=== PATIENT | female | born 1980 | race Caucasian/White ===

== ENCOUNTER 2017-12-09 20:06 | Emergency (ER) | payer MEDICAID ==
[2017-12-09 23:01] LABS: URINE BLOOD (Dip) POC Trace-intact (NEGATIVE); URINE GLUCOSE (Dip) POC Negative (NEGATIVE); URINE KETONES (Dip) POC Negative (NEGATIVE); URINE LEUKOCYTE EST (Dip) POC Trace (NEGATIVE); URINE NITRITE (Dip) POC Negative (NEGATIVE); URINE TOTAL PROTEIN POC Negative (NEGATIVE)
[2017-12-10] MEDS: ACETAMINOPHEN 325 MG TAB PO (00:01)
== END 2017-12-10 00:10 | disposition home or self-care (01) ==
LOC: FTE 20:06
DX: O26.891 Other specified pregnancy related conditions, first trimester (principal); R10.2 Pelvic and perineal pain; O34.81 Maternal care for other abnormalities of pelvic organs, first trimester; Z3A.12 12 weeks gestation of pregnancy
CPT/HCPCS: 76801; 81003; 99284-25

== ENCOUNTER 2018-03-18 11:39 | Outpatient (CLI) | payer MEDICAID ==
[2018-03-18 13:12] LABS: ADD UMIC YES; UR ASCORBIC ACID NEGATIVE (NEGATIVE); UR BACTERIA FEW /HPF (NONE SEEN); UR BILIRUBIN (Dip) NEGATIVE (NEGATIVE); UR BLOOD (Dip) NEGATIVE (NEGATIVE); UR CLARITY CLEAR (CLEAR); UR COLOR STRAW (YELLOW); UR GLUCOSE (Dip) 1+ mg/dL (NEGATIVE); UR KETONES (Dip) NEGATIVE (NEGATIVE); UR LEUKOCYTE ESTERASE (Dip) 1+ Leu/ul (NEGATIVE); UR NITRITE (Dip) NEGATIVE (NEGATIVE); UR RBC 1 /HPF (0-5); UR SPECIFIC GRAVITY (Dip) 1.005 (1.003-1.030); UR SQUAMOUS EPITHELIAL CELL FEW /HPF (FEW); UR TOTAL PROTEIN (Dip) NEGATIVE (NEGATIVE); UR UROBILINOGEN (Dip) NEGATIVE (NEGATIVE); UR WBC 3 /HPF (0-5)
== END 2018-03-18 15:42 | disposition home or self-care (01) ==
LOC: OBT 11:39 → L-D 11:40 → OBT 15:42
DX: O26.892 Other specified pregnancy related conditions, second trimester (principal); O09.522 Supervision of elderly multigravida, second trimester; Z3A.26 26 weeks gestation of pregnancy
CPT/HCPCS: 76817; 76818; 81001

== ENCOUNTER 2018-04-21 21:20 | Outpatient (CLI) | payer MEDICAID ==
[2018-04-21] MEDS: LACTATED RINGER'S 1,000 ML IV ×2 (22:14→22:58)
[2018-04-21] MEDS: ACETAMINOPHEN 500 MG TAB PO (22:16)
[2018-04-21 22:43] LABS: ADD MAN DIFF? NO
[2018-04-21 22:45] LABS: BASOPHILS % 0.3 % (0.0-2.0); EOSINOPHILS # 0.1 10^3/ul (0.0-0.5); EOSINOPHILS % 1.2 % (0.0-7.0); HEMATOCRIT 35.7 % (37.0-47.0); HEMOGLOBIN 11.9 g/dl (12.0-16.0); LYMPHOCYTES % 19.1 % (15.0-51.0); MEAN CORPUSCULAR HEMOGLOBIN 29.4 pg (29.0-33.0); MEAN CORPUSCULAR HGB CONC 33.3 g/dl (32.0-37.0); MEAN CORPUSCULAR VOLUME 88.1 fl (82.0-101.0); MEAN PLATELET VOLUME 10.3 fl (7.4-10.4); MONOCYTE # 0.8 10^3/ul (0.3-0.9); MONOCYTES % 7.2 % (0.0-11.0); NEUTROPHIL # 7.5 10^3/ul (1.6-7.5); NEUTROPHILS % 70.8 % (39.0-77.0); PLATELET COUNT 166 10^3/UL (140-415); RED BLOOD COUNT 4.05 10^6/ul (4.20-5.40); RED CELL DISTRIBUTION WIDTH 13.4 % (11.5-14.5)
[2018-04-21 22:45] LABS: WHITE BLOOD COUNT 10.6 10^3/ul (4.8-10.8)
[2018-04-21 22:50] LABS: ADD UMIC YES; UR ASCORBIC ACID NEGATIVE (NEGATIVE); UR BILIRUBIN (Dip) NEGATIVE (NEGATIVE); UR BLOOD (Dip) NEGATIVE (NEGATIVE); UR CLARITY CLEAR (CLEAR); UR COLOR STRAW (YELLOW); UR GLUCOSE (Dip) 2+ mg/dL (NEGATIVE); UR KETONES (Dip) NEGATIVE (NEGATIVE); UR LEUKOCYTE ESTERASE (Dip) TRACE Leu/ul (NEGATIVE); UR NITRITE (Dip) NEGATIVE (NEGATIVE); UR RBC 0 /HPF (0-5); UR SPECIFIC GRAVITY (Dip) 1.006 (1.003-1.030); UR SQUAMOUS EPITHELIAL CELL FEW /HPF (FEW); UR TOTAL PROTEIN (Dip) NEGATIVE (NEGATIVE); UR UROBILINOGEN (Dip) NEGATIVE (NEGATIVE); UR WBC 1 /HPF (0-5)
[2018-04-21 23:08] LABS: ALANINE AMINOTRANSFERASE 18 IU/L (13-69); ALBUMIN 3.3 g/dl (3.3-4.9); ALKALINE PHOSPHATASE 91 IU/L (42-121); ANION GAP 11 (8-16); ASPARTATE AMINO TRANSFERASE 13 IU/L (15-46); BILIRUBIN,INDIRECT 0.2 mg/dl (0-1.1); BILIRUBIN,TOTAL 0.2 mg/dl (0.2-1.3); BLOOD UREA NITROGEN 6 mg/dl (7-20); CARBON DIOXIDE 23 mmol/L (21-31); CHLORIDE 110 mmol/L (97-110); CREATININE 0.43 mg/dl (0.44-1.00); GLUCOSE 136 mg/dl (70-220); POTASSIUM 3.7 mmol/L (3.5-5.1); SODIUM 140 mmol/L (135-144); TOTAL PROTEIN 6.3 g/dl (6.1-8.1); URIC ACID 3.9 mg/dl (3.1-7.9)
== END 2018-04-22 02:40 | disposition home or self-care (01) ==
LOC: OBT 21:20 → L-D 21:21
DX: O24.410 Gestational diabetes mellitus in pregnancy, diet controlled (principal); Z3A.32 32 weeks gestation of pregnancy
CPT/HCPCS: 36415; 76817; 80053; 81001; 82731; 82962; 84560; 85025; 96360; 96361

== ENCOUNTER 2018-06-14 05:50 | Inpatient (IN) | payer MEDICAID ==
[2018-06-14] MEDS ORDERED: CARBOPROST 250 MCG INJ IM (11:00)
[2018-06-14] MEDS ORDERED: METHYLERGONOVINE 0.2 MG INJ IM (11:00)
[2018-06-14] MEDS ORDERED: MISOPROSTOL 200 MCG TAB PR (11:00)
[2018-06-14] MEDS ORDERED: OXYTOCIN 30 UNITS/LR 500 ML IV (11:00)
[2018-06-14] MEDS ORDERED: BUTORPHANOL 1 MG INJ IV (11:00)
[2018-06-14] MEDS ORDERED: LIDOCAINE 1% (MPF) 30 ML INJ INJ (11:00)
[2018-06-14 11:40] LABS: ADD MAN DIFF? NO
[2018-06-14 11:48] LABS: WHITE BLOOD COUNT 9.1 10^3/ul (4.8-10.8)
[2018-06-14 11:48] LABS: BASOPHILS % 0.4 % (0.0-2.0); EOSINOPHILS # 0.1 10^3/ul (0.0-0.5); EOSINOPHILS % 0.9 % (0.0-7.0); HEMATOCRIT 41.1 % (37.0-47.0); HEMOGLOBIN 13.2 g/dl (12.0-16.0); LYMPHOCYTES # 2.1 10^3/ul (0.8-2.9); LYMPHOCYTES % 22.5 % (15.0-51.0); MEAN CORPUSCULAR HEMOGLOBIN 28.1 pg (29.0-33.0); MEAN CORPUSCULAR HGB CONC 32.1 g/dl (32.0-37.0); MEAN CORPUSCULAR VOLUME 87.4 fl (82.0-101.0); MEAN PLATELET VOLUME 12.6 fl (7.4-10.4); MONOCYTE # 0.7 10^3/ul (0.3-0.9); MONOCYTES % 7.5 % (0.0-11.0); NEUTROPHIL # 6.2 10^3/ul (1.6-7.5); NEUTROPHILS % 67.7 % (39.0-77.0); PLATELET COUNT 122 10^3/UL (140-415); RED CELL DISTRIBUTION WIDTH 14.6 % (11.5-14.5)
[2018-06-14 12:09] LABS: INR 0.93; PROTIME 12.6 Sec (11.9-14.9)
[2018-06-14 12:10] LABS: PARTIAL THROMBOPLASTIN TIME 31.4 Sec (25.0-35.0)
[2018-06-14] MEDS: LACTATED RINGER'S 1,000 ML IV* ×3 (12:38→20:48)
[2018-06-14] MEDS: OXYTOCIN 30 UNITS/LR 500 ML IV (12:47)
[2018-06-14] MEDS: BUTORPHANOL 2 MG INJ IV (15:09)
[2018-06-14 16:19] LABS: HEPATITIS B SURFACE ANTIGEN NEGATIVE (NEGATIVE)
[2018-06-14 19:54] LABS: RAPID PLASMA REAGIN NONREACTIVE (NR)
[2018-06-14] MEDS ORDERED: DEXTROSE 5%-LR 1,000 ML IV (20:30)
[2018-06-14] MEDS ORDERED: FENTAnyl 2MCG/ML-ROPIV 0.2% 100 ML (20:50)
[2018-06-14] MEDS ORDERED: DIPHENHYDRAMINE 50 MG INJ IV (21:30)
[2018-06-14] MEDS ORDERED: NALOXONE (0.4 MG/ML) INJ IV (21:30)
[2018-06-14] MEDS ORDERED: FENTAnyl 2MCG/ML-ROPIV 0.2% 100 ML BAG EPI (21:30)
[2018-06-14] MEDS ORDERED: ONDANSETRON 4 MG INJ IV (21:30)
[2018-06-15] MEDS: OXYTOCIN 30 UNITS/LR 500 ML IV ×3 (01:35→06:18)
[2018-06-15] MEDS: LACTATED RINGER'S 1,000 ML IV* ×5 (01:35→19:00)
[2018-06-15] MEDS ORDERED: OXYTOCIN 30 UNITS/LR 500 ML IV (02:00)
[2018-06-15] MEDS ORDERED: MISOPROSTOL 200 MCG TAB PR (02:00)
[2018-06-15] MEDS ORDERED: METHYLERGONOVINE 0.2 MG INJ IM (02:00)
[2018-06-15] MEDS ORDERED: ONDANSETRON 4 MG INJ IV (02:00)
[2018-06-15] MEDS ORDERED: DIBUCAINE 1% 30 GM OINT PR (02:00)
[2018-06-15] MEDS ORDERED: ACETAMINOPHEN 325 MG TAB PO (02:00)
[2018-06-15] MEDS ORDERED: LANOLIN 7 GM TUBE TOP (02:00)
[2018-06-15] MEDS ORDERED: CARBOPROST 250 MCG INJ IM (02:00)
[2018-06-15] MEDS: IBUPROFEN 600 MG TAB PO ×3 (03:13→17:29)
[2018-06-15] MEDS: WITCH HAZEL/GLYCERIN PAD PR (06:47)
[2018-06-15] MEDS: BENZOCAINE 20% 56 ML SPRAY TOP (06:48)
[2018-06-15] MEDS: ACETAMINOPHEN 325 MG TAB PO (06:49)
[2018-06-15] MEDS: MAGNESIUM HYDROXIDE 30ML CUP PO (09:09)
[2018-06-15] MEDS: SENNA/DOCUSATE NA (8.6MG/50MG) TAB PO (09:09)
[2018-06-16] MEDS: LACTATED RINGER'S 1,000 ML IV* ×6 (01:35→20:39)
[2018-06-16] MEDS: IBUPROFEN 600 MG TAB PO ×4 (02:25→23:43)
[2018-06-16 08:03] LABS: ADD MAN DIFF? NO
[2018-06-16 08:07] LABS: BASOPHILS % 0.2 % (0.0-2.0); EOSINOPHILS # 0.1 10^3/ul (0.0-0.5); EOSINOPHILS % 1.6 % (0.0-7.0); HEMATOCRIT 36.6 % (37.0-47.0); HEMOGLOBIN 11.6 g/dl (12.0-16.0); LYMPHOCYTES # 2.2 10^3/ul (0.8-2.9); LYMPHOCYTES % 24.5 % (15.0-51.0); MEAN CORPUSCULAR HEMOGLOBIN 28.1 pg (29.0-33.0); MEAN CORPUSCULAR HGB CONC 31.7 g/dl (32.0-37.0); MEAN CORPUSCULAR VOLUME 88.6 fl (82.0-101.0); MEAN PLATELET VOLUME 12.5 fl (7.4-10.4); MONOCYTE # 0.8 10^3/ul (0.3-0.9); MONOCYTES % 9.5 % (0.0-11.0); NEUTROPHIL # 5.6 10^3/ul (1.6-7.5); NEUTROPHILS % 63.6 % (39.0-77.0); PLATELET COUNT 102 10^3/UL (140-415); RED BLOOD COUNT 4.13 10^6/ul (4.20-5.40)
[2018-06-16 08:07] LABS: WHITE BLOOD COUNT 8.8 10^3/ul (4.8-10.8)
[2018-06-16] MEDS: SENNA/DOCUSATE NA (8.6MG/50MG) TAB PO (09:56)
[2018-06-16] MEDS: MAGNESIUM HYDROXIDE 30ML CUP PO (09:56)
[2018-06-17] MEDS: LACTATED RINGER'S 1,000 ML IV* ×2 (01:35→04:49)
[2018-06-17] MEDS: IBUPROFEN 600 MG TAB PO ×2 (05:28→11:37)
[2018-06-17] MEDS: SENNA/DOCUSATE NA (8.6MG/50MG) TAB PO (09:04)
[2018-06-17] MEDS: MAGNESIUM HYDROXIDE 30ML CUP PO (09:04)
== END 2018-06-17 12:45 | disposition home or self-care (01) | DRG 775 ==
LOC: OBT 05:50 → PP1 06-15 03:57 → L-D 05:50 → OBT 10:55 → L-D 10:55
PROVIDERS: Obstetrics & Gynecology
PROC: 10E0XZZ Delivery of Products of Conception, External Approach (ICD-10-PCS; principal; 2018-06-14)
PROC: 3E033VJ Introduction of Other Hormone into Peripheral Vein, Percutaneous Approach (ICD-10-PCS; 2018-06-14)
DX: O24.429 Gestational diabetes mellitus in childbirth, unspecified control (principal); Z3A.39 39 weeks gestation of pregnancy; Z37.0 Single live birth
CPT/HCPCS: 62319; 82962; 85025; 85610; 85730; 86592; 86850; 86900; 86901; 87340

== ENCOUNTER 2018-10-06 10:01 | Emergency (ER) | payer MEDICAID | END 2018-10-06 11:27 | disposition home or self-care (01) | LOC: FTE 10:01 | DX: K64.4 Residual hemorrhoidal skin tags (principal); K59.00 Constipation, unspecified | CPT/HCPCS: 99284; Z7502 ==